=== PATIENT | male | born 1985 | race Caucasian/White ===

== ENCOUNTER 2017-01-21 08:29 | Emergency (ER) | payer MEDICAID ==
[~2017-01-21] VITALS: Ht 177.8 cm; Wt 136.5 kg
[~2017-01-21 08:29] MED LIST: ACET-3161 PO; ALBU17AE26; ALBU17AE26 IH; ONDA4TAB5; VIC
[2017-01-21] MEDS ORDERED: SODIUM CHLORIDE 0.9% 1,000 ML IV ONE (09:32)
[2017-01-21] MEDS ORDERED: ONDANSETRON HCL 4MG/2ML VIAL IV STA (09:32)
[2017-01-21] MEDS ORDERED: MAGNESIUM/ALUMINUM HYDROXIDE/SIMETHICONE 30ML UDC PO STA (09:32)
[2017-01-21] MEDS ORDERED: MORPHINE SULFATE 4 MG/ML CPJ (NOT FOR IM USE) IV STA (09:32)
[2017-01-21] MEDS ORDERED: FAMOTIDINE 20MG/2ML VIAL IV STA (09:32)
[2017-01-21 10:02] LABS: BASOPHILS % 0.7 % (0.0-2.0); EOSINOPHILS % 0.3 % (0.0-5.0); HEMATOCRIT. 46.9 % (42.0-52.0); HEMOGLOBIN. 15.9 g/dL (14.0-18.0); LYMPHOCYTES % 19.4 % (20.0-50.0); MEAN CORPUSCULAR HEMOGLOBIN 28.9 pg (28.0-32.0); MEAN PLATELET VOLUME 7.3 fl (7.4-10.4); MONOCYTES % 7.3 % (2.0-8.0); NEUTROPHILS % 72.3 % (40.0-76.0); PLATELET 324 x1000/uL (130-400); RED BLOOD CELL COUNT 5.52 mill/uL (4.7-6.1); RED CELL DISTRIBUTION WIDTH 13.1 % (11.6-14.6)
[2017-01-21 10:08] LABS: INR 1.1; PROTHROMBIN TIME 11.8 sec (9.4-11.6)
[2017-01-21 10:22] LABS: CHLORIDE 103 mEq/L (98-107)
[2017-01-21 10:28] LABS: CARBON DIOXIDE 23 mEq/L (21-32); ETHANOL BLOOD < 10 mg/dL
[2017-01-21] MEDS ORDERED: LORAZEPAM 2MG/ML CPJ IV ONE (10:30)
[2017-01-21 11:08] LABS: CLARITY URINE CLEAR (CLEAR); COLOR URINE YELLOW (YELLOW); GLUCOSE URINE NEGATIVE (NEGATIVE); KETONES URINE 1+ (NEGATIVE); LEUKOCYTE ESTERASE URINE TRACE (NEGATIVE); NITRITE URINE NEGATIVE (NEGATIVE); OCCULT BLOOD URINE 1+ (NEGATIVE); PH URINE 6.5 (4.5-8.0); PROTEIN URINE NEGATIVE (NEGATIVE); SPECIFIC GRAVITY URINE 1.019 (1.005-1.030)
[2017-01-21 11:33] VITALS: BP 113/69
[2017-01-21 11:47] LABS: *AMPHETAMINES SCREEN URINE NEGATIVE (NEGATIVE); *BARBITURATES SCREEN URINE NEGATIVE (NEGATIVE); *BENZODIAZEPINES SCREEN URINE NEGATIVE (NEGATIVE); *COCAINE SCREEN URINE NEGATIVE (NEGATIVE); CANNABINOID URINE SCREEN PRESUMTIVE POSITIVE (NEGATIVE); METHADONE URINE SCREEN NEGATIVE (NEGATIVE); OPIATES URINE SCREEN PRESUMTIVE POSITIVE (NEGATIVE); PHENCYCLIDINE URINE SCREEN NEGATIVE (NEGATIVE)
== END 2017-01-21 13:27 | disposition home or self-care (01) ==
LOC: ER 08:57
DX: R10.13 Epigastric pain (principal); K21.9 Gastro-esophageal reflux disease without esophagitis; N39.0 Urinary tract infection, site not specified; Z90.49 Acquired absence of other specified parts of digestive tract; Z88.8 Allergy status to other drugs, medicaments and biological substances; F12.90 Cannabis use, unspecified, uncomplicated; F11.10 Opioid abuse, uncomplicated; F41.9 Anxiety disorder, unspecified; F17.210 Nicotine dependence, cigarettes, uncomplicated; R03.0 Elevated blood-pressure reading, without diagnosis of hypertension; K59.00 Constipation, unspecified
CPT/HCPCS: 36415; 71010; 80053; 80305; 81001; 83690; 85025; 85610; 93005; 96361; 96374; 96375; 99285; G0482; J2060; J2270; J2405; J3490; J7030; Z7610

== ENCOUNTER 2017-02-16 20:06 | Emergency (ER) | payer MEDICAID, OTHER ==
[~2017-02-16] VITALS: Ht 177.8 cm; Wt 137.0 kg
[2017-02-16] MEDS ORDERED: ONDANSETRON HCL 4MG/2ML VIAL IV STA (20:41)
[2017-02-16] MEDS ORDERED: MORPHINE SULFATE 4 MG/ML CPJ (NOT FOR IM USE) IV STA (20:41)
[2017-02-16] MEDS ORDERED: PANTOPRAZOLE SODIUM 40 MG/VIAL IV STA (20:41)
[2017-02-16] MEDS ORDERED: SODIUM CHLORIDE 0.9% 1,000 ML IV ONE (20:41)
[2017-02-16 21:24] LABS: BASOPHILS % 0.5 % (0.0-2.0); HEMATOCRIT. 49.2 % (42.0-52.0); HEMOGLOBIN. 16.6 g/dL (14.0-18.0); LYMPHOCYTES % 12.5 % (20.0-50.0); MEAN CORPUSCULAR HEMOGLOBIN 29.1 pg (28.0-32.0); MEAN CORPUSCULAR VOLUME 86.3 fL (80.0-94.0); MEAN PLATELET VOLUME 7.1 fl (7.4-10.4); MONOCYTES % 3.8 % (2.0-8.0); NEUTROPHILS % 83.2 % (40.0-76.0); PLATELET 335 x1000/uL (130-400); RED CELL DISTRIBUTION WIDTH 13.4 % (11.6-14.6)
[2017-02-16 21:31] LABS: PROTHROMBIN TIME 10.8 sec (9.4-11.6)
[2017-02-16 21:35] LABS: CARBON DIOXIDE 26 mEq/L (21-32); CHLORIDE 102 mEq/L (98-107)
[2017-02-16 21:36] LABS: TROPONIN I < 0.02 ng/mL (0.00-0.04)
[2017-02-16] MEDS ORDERED: IOHEXOL-300 100 ML BOTTLE ONE (21:56)
[2017-02-16 22:56] LABS: CLARITY URINE CLEAR (CLEAR); COLOR URINE YELLOW (YELLOW); GLUCOSE URINE NEGATIVE (NEGATIVE); KETONES URINE 1+ (NEGATIVE); LEUKOCYTE ESTERASE URINE NEGATIVE (NEGATIVE); NITRITE URINE NEGATIVE (NEGATIVE); OCCULT BLOOD URINE 1+ (NEGATIVE); PH URINE 7.5 (4.5-8.0); PROTEIN URINE TRACE (NEGATIVE); SPECIFIC GRAVITY URINE 1.027 (1.005-1.030); UROBILINOGEN URINE 0.2 E.U./dL (0.2-1.0)
[2017-02-16] MEDS ORDERED: MORPHINE SULFATE 4 MG/ML CPJ (NOT FOR IM USE) IV ONE (23:45)
[2017-02-16] MEDS ORDERED: FAMOTIDINE 20MG/2ML VIAL IV ONE (23:45)
[2017-02-16] MEDS ORDERED: METOCLOPRAMIDE HCL 10MG/2ML VIAL IV ONE (23:45)
[2017-02-17] MEDS ORDERED: LORAZEPAM 2MG/ML CPJ IV ONE (00:30)
[2017-02-17 02:47] VITALS: BP 125/63
== END 2017-02-17 02:49 | disposition home or self-care (01) ==
LOC: ER 20:06
DX: K29.00 Acute gastritis without bleeding (principal); K22.10 Ulcer of esophagus without bleeding; R31.29 Other microscopic hematuria; K76.0 Fatty (change of) liver, not elsewhere classified; K21.9 Gastro-esophageal reflux disease without esophagitis; J45.909 Unspecified asthma, uncomplicated; F17.200 Nicotine dependence, unspecified, uncomplicated; F12.10 Cannabis abuse, uncomplicated; Z90.49 Acquired absence of other specified parts of digestive tract; Z88.8 Allergy status to other drugs, medicaments and biological substances
CPT/HCPCS: 36415; 74177; 80053; 81001; 82962; 83690; 84484; 85025; 85610; 87086; 93005; 96365; 96375; 96376; 99285; C9113; J2060; J2270; J2405; J2765; J3490; J7040; Q9967; Z7610; J7030

== ENCOUNTER 2022-02-18 01:04 | Emergency (ER) | payer OTHER | END 2022-02-18 01:20 | disposition left against medical advice (07) | LOC: ER 01:04 | DX: Z53.21 Procedure and treatment not carried out due to patient leaving prior to being seen by health care provider (principal) ==